=== PATIENT | female | born 1980 | race Caucasian/White ===

== ENCOUNTER 2021-03-30 22:52 | Emergency (ER) | payer BC ==
[2021-03-31 00:37] LABS: Bilirubin Negative (Negative); Blood, Urine Negative (Negative); Clarity Clear (Clear); Glucose, Urine (Dipstick) Normal (Negative); Ketone, Urine Negative (Negative); Leukocyte Negative Leu/uL (Negative); Nitrite Negative (Negative); Protein, Urine (Dipstick) Negative (Neg-Trace); Specific Gravity, Urine 1.004 (1.002-1.036); Urobilinogen Normal mg/dL (Less than 2); pH, Urine 5.5 (5.0-9.0)
[2021-03-31 00:53] LABS: BHCG - Serum Negative (NEGATIVE); Pregs Control Background? CLEAR/WHITE (CLR/WHITE); Pregs Control Bar Appear? YES (CONTROL BAR)
[2021-03-31 01:03] LABS: ALT (SGPT) 60 U/L (8-55); AST (SGOT) 100 U/L (5-34); Albumin 3.8 g/dL (3.5-5.0); Alkaline Phosphatase 87 U/L (40-110); Anion Gap 15 mmol/L (10-20); BUN (Urea Nitrogen) 10 mg/dL (7.0-18.7); Bilirubin, Total 0.5 mg/dL (0.2-1.2); Calc. Creatinine Clearance 0 mL/min (70-130); Calcium 8.8 mg/dL (7.8-10.44); Carbon Dioxide 18 mmol/L (22-29); Chloride 105 mmol/L (98-107); Globulin 4.8 g/dL (2.4-3.5); Glucose 109 mg/dL (70-105); Lipase 43 U/L (8-78); Potassium 4.1 mmol/L (3.5-5.1); Protein, Total 8.6 g/dL (6.0-8.3); Sodium 134 mmol/L (136-145)
[2021-03-31 01:22] LABS: #Basophils 0.1 thou/uL (0.0-0.2); #Eosinphils 0.1 thou/uL (0.0-0.7); #Lymphocytes 2.1 thou/uL (1.20-3.40); #Monocytes 0.6 thou/uL (0.11-0.59); #Neutrophils 4.6 thou/uL (1.40-6.50); %Basophils 1.3 % (0.0-1.0); %Eosinophils 0.9 % (0.0-10.0); %Lymphocytes 28.1 % (21.0-51.0); %Monocytes 8.5 % (0.0-10.0); %Neutrophils 61.2 % (42.0-75.0); Hemoglobin 14.5 g/dL (12.0-16.0); MDiff Complete? YES; Macrocytosis SLIGHT = 6-15 cells (100X) (0-5/hpf); Mean Corpuscular HGB CONC 35.1 g/dL (32.0-36.0); Mean Corpuscular Hemoglobin 37.7 pg (27.0-31.0); Platelet Count 114 thou/uL (130-400); Platelet Morphology Comment Appears Decreased; RBC Distribution Width 11.9 % (11.5-14.5); Red Blood Cell (RBC) Count 3.86 mill/uL (4.20-5.40); White Blood Cell (WBC) Count 7.5 thou/uL (4.8-10.8)
== END 2021-03-31 03:50 | disposition home or self-care (01) ==
LOC: ERS 22:52
DX: R10.31 Right lower quadrant pain (principal); I10 Essential (primary) hypertension; Z79.899 Other long term (current) drug therapy
CPT/HCPCS: 74177; 80053; 81003; 83690; 84703; 85025; 87086

== ENCOUNTER 2021-12-17 11:54 | Outpatient (CLI) | payer BC | END 2021-12-17 11:55 | disposition home or self-care (01) | LOC: BICMAMMO 11:54 | PROVIDERS: ATTEND Nurse Practitioner | DX: Z12.31 Encounter for screening mammogram for malignant neoplasm of breast (principal); N63.20 Unspecified lump in the left breast, unspecified quadrant | CPT/HCPCS: 77063; 77067 ==

== ENCOUNTER 2024-04-23 23:52 | Emergency (ER) | payer BC, OTHER | END 2024-04-24 03:30 | disposition home or self-care (01) | LOC: ERS 23:52 | DX: S01.511A Laceration without foreign body of lip, initial encounter (principal); F10.129 Alcohol abuse with intoxication, unspecified; I10 Essential (primary) hypertension; F17.210 Nicotine dependence, cigarettes, uncomplicated; Z79.899 Other long term (current) drug therapy; W01.0XXA Fall on same level from slipping, tripping and stumbling without subsequent striking against object, initial encounter; Y90.9 Presence of alcohol in blood, level not specified | CPT/HCPCS: 12011; 70450 ==